=== PATIENT | female | born 1945 ===

== ENCOUNTER 2017-04-29 13:56 | Inpatient (IN) | payer OTHER ==
--- NOTE | 2017-04-29 15:11 | ED PDOC ---
HPI: General Adult Time Seen by Provider: 04/29/17 14:32 Chief Complaint (Nursing): Cough, Cold, Congestion History Per: Patient, Conversion Developer (German #[id number]) Additional Complaint(s): Pt. states since February she's had a persistent intermittently productive cough. Reports also developing worsening SOB. States initially she had back pain and chest pain present with coughing but now symptoms are present at rest. Further states she has been evaluated in [place] [facility] twice and had CXR, prescribed an antibiotic and a "strong" cough syrup (which caused her to have a pruritic rash). Also states that she had a CT of the chest in March in [place] [facility] which showed that she was "congested" and had no blood clots in the lung. Pt. states she was evaluated by Dr. Juarez today who instructed her to come to ED for further evaluation. Denies hemoptysis, fever, sick contacts, recent travel, leg pain/swelling, URIBE. Past Medical History Reviewed: Historical Data, Nursing Documentation, Vital Signs Vital Signs: Last Vital Signs Temp 98.1 F 04/29/17 14:07 Pulse 86 04/29/17 17:24 Resp 16 04/29/17 17:02 BP 130/60 04/29/17 17:02 Pulse Ox 98 04/29/17 17:24 - Medical History PMH: Depression, HTN - Family History Family History: States: No Known Family Hx - Home Medications Home Medications: Ambulatory Orders Medication Instructions Recorded Albuterol 0.083% [Albuterol 0.083% 3 ml IH Q8H PRN 04/29/17 Inhal Adelaide (2.5 mg/3 ml) UD] Albuterol/Ipratropium [Combivent 1 puff IH Q6H PRN 04/29/17 Respimat] Cholecalciferol [Vitamin D 1000 IU] 1,000 unit PO DAILY 04/29/17 Escitalopram [Lexapro] 20 mg PO DAILY 04/29/17 Loratadine [Claritin] 10 mg PO DAILY 04/29/17 Montelukast [Singulair] 10 mg PO HS 04/29/17 Marlin-3 Fatty Acids/Fish Oil 1,000 mg PO BID 04/29/17 [Marlin-3 1,000 mg Softgel] Omeprazole [Omeprazole] 20 mg PO DAILY 04/29/17 Rosuvastatin Calcium [Crestor] 10 mg PO QPM 04/29/17 Valsartan/Hydrochlorothiazide 1 tab PO DAILY 04/29/17 [Valsartan-Hctz 80-12.5 mg Tab] - Allergies Allergies/Adverse Reactions: Allergies Allergy/AdvReac Type Severity Reaction Status Date / Time No Known Allergies Allergy Verified 04/29/17 14:10 Review of Systems ROS Statement: Except As Marked, All Systems Reviewed And Found Negative Cardiovascular: Positive for: Chest Pain Respiratory: Positive for: Cough, Shortness of Breath Physical Exam - Reviewed Nursing Documentation Reviewed: Yes Vital Signs Reviewed: Yes - Physical Exam Appears: Positive for: Well, Non-toxic, No Acute Distress (actively coughing) Head Exam: Positive for: ATRAUMATIC, NORMAL INSPECTION, NORMOCEPHALIC Skin: Positive for: Normal Color, Warm. Negative for: Rash Eye Exam: Positive for: Normal appearance ENT: Positive for: Normal ENT Inspection Neck: Positive for: Normal, Painless ROM Cardiovascular/Chest: Positive for: Regular Rate, Rhythm Respiratory: Positive for: Normal Breath Sounds. Negative for: Decreased Breath Sounds, Accessory Muscle Use, Respiratory Distress Gastrointestinal/Abdominal: Positive for: Normal Exam, Bowel Sounds, Soft. Negative for: Tenderness Back: Positive for: Normal Inspection. Negative for: L CVA Tenderness, R CVA Tenderness Extremity: Positive for: Normal ROM Neurologic/Psych: Positive for: Alert, Oriented. Negative for: Aphasia, Facial Droop - Laboratory Results Result Diagrams: 04/29/17 15:26 04/29/17 15:26 - ECG ECG: Positive for: Interpreted By Me ECG Rhythm: Positive for: Sinus Rhythm. Negative for: ST/T Changes Rate: 86 O2 Sat by Pulse Oximetry: 98 - Radiology X-Ray: Interpreted by Me (CXR) X-Ray Interpretation: No Acute Disease - Progress ED Course And Treament: Labs ordered. CXR, EKG ordered. 1500 Case d/w Dr. Juarez who states pt. did get a CTA chest to R/O PE in March which was negative. Requests blood work and CXR to be done and for patient to be admitted under his service. ASA 324mg PO ordered. Disposition - Clinical Impression Clinical Impression: Dyspnea, Chest pain - Patient ED Disposition Is Patient to be Admitted: No - Disposition Disposition Time: 15:07 Condition: STABLE
[2017-04-29 15:33] LABS: BASO # 0.1 K/uL (0.0-0.2); BASO % 1.2 % (0.0-2.0); EOS # 0.9 K/uL (0.0-0.7); EOS % 11.1 % (0.0-4.0); HEMOGLOBIN 13.2 g/dL (12.0-16.0); LYMPH # 2.2 K/uL (1.0-4.3); LYMPH % 26.4 % (20.0-40.0); MEAN CELL VOLUME 87.9 fl (81.0-99.0); MEAN CORPUSCULAR HGB CONC 31.8 g/dL (33.0-37.0); MEAN PLATELET VOLUME 8.4 fl (7.2-11.7); MONO # 0.7 K/uL (0.0-0.8); MONO % 8.2 % (0.0-10.0); NEUT # 4.4 K/uL (1.8-7.0); NEUT % 53.1 % (50.0-75.0); NRBC % 0.1 % (0.0-0.0); RBC 4.72 Mil/uL (3.80-5.20); RED CELL DISTRIBUTION WIDTH 15.3 % (11.5-14.5); WHITE BLOOD COUNT 8.4 K/uL (4.8-10.8)
[2017-04-29 15:42] LABS: ALB/GLOB RATIO 1.1 (1.0-2.1); ALBUMIN 4.1 g/dL (3.5-5.0); ALT/SGPT 38 U/L (9-52); AST/SGOT 38 U/L (14-36); BLOOD UREA NITROGEN 12 mg/dl (7-17); CALCIUM 9.4 mg/dL (8.4-10.2); GFR AFRICAN-AMERICAN > 60; GFR NON-AFRICAN AMERICAN > 60
--- NOTE | 2017-04-29 15:50 | RAD ---
HISTORY: Shortness of breath COMPARISON: No prior. FINDINGS: LUNGS: The lungs are well inflated and clear. PLEURA: No significant pleural effusion identified, no pneumothorax apparent. CARDIOVASCULAR: Normal. OSSEOUS STRUCTURES: No significant abnormalities. VISUALIZED UPPER ABDOMEN: Normal. OTHER FINDINGS: None. IMPRESSION: No active pulmonary disease.
[2017-04-29 15:53] LABS: B-TYPE NATRIURETIC PEPTIDE 136 pg/ml (0-900)
[2017-04-29] MEDS ORDERED: Sodium Chloride 3% for Inhalation 4 ML VIAL.NEB IH PRN (18:19)
[2017-04-29] MEDS: Promethazine 12.5 mg/10 ml Syrup PO PRN (21:27)
[2017-04-29] MEDS ORDERED: Alum-Mag Hydrox-Simethicone Susp (30 mL) PO ONE (23:19)
[2017-04-29] MEDS: Pantoprazole 40 mg EC Tab PO SCH (23:29)
[2017-04-29] MEDS: Albuterol-Ipratrop 3 mg / 0.5 (3 ml) UD INH PRN (23:57)
[2017-04-30] MEDS: MethylPREDNISolone 40 mg Vial IVP SCH ×3 (00:39→16:18)
[2017-04-30 06:03] LABS: BASO % 0.5 % (0.0-2.0); EOS # 0.1 K/uL (0.0-0.7); EOS % 1.8 % (0.0-4.0); HEMOGLOBIN 13.7 g/dL (12.0-16.0); LYMPH # 0.8 K/uL (1.0-4.3); LYMPH % 10.2 % (20.0-40.0); MEAN CORPUSCULAR HEMOGLOBIN 28.2 pg (27.0-31.0); MEAN CORPUSCULAR HGB CONC 31.6 g/dL (33.0-37.0); MEAN PLATELET VOLUME 8.6 fl (7.2-11.7); MONO # 0.1 K/uL (0.0-0.8); MONO % 1.5 % (0.0-10.0); NEUT # 6.6 K/uL (1.8-7.0); NRBC % 0.1 % (0.0-0.0); RBC 4.88 Mil/uL (3.80-5.20); RED CELL DISTRIBUTION WIDTH 15.1 % (11.5-14.5); WHITE BLOOD COUNT 7.7 K/uL (4.8-10.8)
[2017-04-30 06:06] LABS: BLOOD UREA NITROGEN 14 mg/dl (7-17); CALCIUM 9.1 mg/dL (8.4-10.2); GFR AFRICAN-AMERICAN > 60; GFR NON-AFRICAN AMERICAN > 60; HDL CHOLESTEROL 79 MG/DL (30-70)
[2017-04-30 06:18] LABS: LDL CHOLESTEROL 145 mg/dL (0-129)
[2017-04-30] MEDS ORDERED: Patient's Own Med (Valsartan/Hydrochlorothiazide [Valsartan-Hctz 80-12.5 Mg Tab] 1 TAB) PO SCH (09:00)
[2017-04-30] MEDS: Promethazine 12.5 mg/10 ml Syrup PO PRN ×2 (09:01→16:18)
[2017-04-30] MEDS: Pantoprazole 40 mg EC Tab PO SCH (09:01)
[2017-04-30] MEDS: Omega-3-Acid Ethyl Esters 1 GM Cap PO SCH (09:02)
[2017-04-30] MEDS: levoFLOXacin 500 mg in D5W 500 MG/100 ML BAG IVPB SCH (09:10)
--- NOTE | 2017-04-30 10:09 | HP ---
HISTORY OF PRESENT ILLNESS: Ms. Ross is a 71-year-old female who was admitted because of persistent cough with shortness of breath and exercise intolerance for the past several months, worse on the day of admission. She indicates that she has been unable to go up flight of stairs and has had a cough with severe back pain. She had had a CT scan of the chest done at [facility], which was read as noncontributory. She also has had chest x-rays, which shows pulmonary congestion. PAST MEDICAL HISTORY: Depression, hypertension and what appears to be asthma and hyperlipidemia. MEDICATIONS: She has been on multiple medications to . FAMILY HISTORY: Unrevealing. SOCIAL HISTORY: She does not smoke or drink. Lives alone. REVIEW OF SYSTEMS: Essentially remarkable for exercise intolerance and shortness of breath with dry cough and back pain. OBJECTIVE: VITAL SIGNS: Blood pressure of 130/60, pulse of 86, respiratory rate of 16. She is febrile. O2 sat 98% on room air. SKIN: Shows fair turgor. HEENT: Pupils are equal and reactive to light and accommodation. Mouth shows fair hygiene. NECK: JVP flat. LUNGS: Fair aeration with audible rales and wheezing. HEART: Regular. ABDOMEN: Soft and nontender, no organomegaly. EXTREMITIES: Show no edema or cyanosis. CENTRAL NERVOUS SYSTEM: Exam grossly intact. LABORATORY DATA: Remarkable for WBC of 7.7, hemoglobin of 13.7, and platelet count of 257,000. Sodium of 144, potassium of 4.0, BUN of 14, creatinine of 0.3, and serum glucose of 110. Cholesterol of 289. ABG is pending. Chest x-ray is remarkable for no active pulmonary disease. IMPRESSION: Acute asthma, upper respiratory tract infection, back pain secondary to coughing, hypertension, hyperlipidemia, and anxiety disorder. PLAN: IV steroids as well as bronchodilators and antitussives and analgesics for back pain. We will obtain sputum for gram stain and cultures and blood cultures. Arterial blood gases to further evaluate for hypoxemia. Further therapy will depend on findings. William Juarez MD [facility] # [phone]
[2017-04-30 12:19] LABS: ABG ALLEN TEST YES; ARTERIAL BLOOD GAS HCO3 26.4 mmol/L (21-28); ARTERIAL BLOOD GAS HEMOGLOBIN 13.6 g/dL (11.7-17.4); ARTERIAL BLOOD GAS O2 CAPACITY 18.3 mL/dL (16-24); ARTERIAL BLOOD GAS O2 CONTENT 18.1 ML/dL (15-23); ARTERIAL BLOOD GAS O2 SAT 98.8 % (95-98); ARTERIAL BLOOD GAS PCO2 40 mm/Hg (35-45); ARTERIAL BLOOD GAS PH 7.43 (7.35-7.45); ARTERIAL BLOOD GAS PO2 80 mm/Hg (80-100); ARTERIAL BLOOD GAS TCO2 27.7 mmol/L (22-28)
[2017-04-30] MEDS: Albuterol-Ipratrop 3 mg / 0.5 (3 ml) UD INH PRN (15:28)
[2017-04-30] MEDS: Enoxaparin 40 mg Syringe SC SCH (16:17)
[2017-05-01] MEDS: MethylPREDNISolone 40 mg Vial IVP SCH ×3 (00:05→22:30)
[2017-05-01] MEDS: Albuterol-Ipratrop 3 mg / 0.5 (3 ml) UD INH PRN (01:10)
[2017-05-01] MEDS: Promethazine 12.5 mg/10 ml Syrup PO PRN ×3 (01:49→15:12)
--- NOTE | 2017-05-01 03:08 | CARD ---
APPROVED REPORT EKG Measurement Heart [id number] <Conclusion> Normal sinus rhythm Possible Inferior infarct, age undetermined Abnormal ECG
[2017-05-01] MEDS: Omega-3-Acid Ethyl Esters 1 GM Cap PO SCH ×2 (08:41→16:38)
[2017-05-01] MEDS: Enoxaparin 40 mg Syringe SC SCH (08:42)
[2017-05-01] MEDS: Pantoprazole 40 mg EC Tab PO SCH (08:42)
[2017-05-01] MEDS: levoFLOXacin 500 mg in D5W 500 MG/100 ML BAG IVPB SCH (08:43)
--- NOTE | 2017-05-01 09:37 | CP.PCM.PN ---
Subjective - Date & Time of Evaluation Date of Evaluation: 05/01/17 Time of Evaluation: 09:37 - Subjective Subjective: CLINICALLY IMPROVING LESS COUGH/SOB Objective - Vital Signs/Intake and Output Vital Signs (last 24 hours): Temp Pulse Resp BP Pulse Ox 98.4 F 84 18 106/69 98 05/01/17 07:56 05/01/17 07:56 05/01/17 07:56 05/01/17 07:56 05/01/17 07:56 - Medications Medications: Current Medications Acetaminophen (Tylenol 325mg Tab) 650 mg PO Q4 PRN PRN Reason: Pain, Mild (1-3) Last Admin: 05/01/17 08:47 Dose: 650 mg Albuterol/Ipratropium (Duoneb 3 Mg/0.5 Mg (3 Ml) Ud) 3 ml INH RQ6 PRN PRN Reason: Shortness of Breath Last Admin: 05/01/17 01:10 Dose: 3 ml Atorvastatin Calcium (Lipitor) 10 mg PO DAILY [facility] Last Admin: 05/01/17 08:42 Dose: 10 mg Enoxaparin Sodium (Lovenox) 40 mg SC DAILY [facility] PRN Reason: Protocol Last Admin: 05/01/17 08:42 Dose: 40 mg Escitalopram Oxalate (Lexapro) 20 mg PO DAILY [facility] Last Admin: 05/01/17 08:42 Dose: 20 mg Hydrochlorothiazide (Microzide) 12.5 mg PO DAILY [facility] Last Admin: 05/01/17 08:40 Dose: 12.5 mg Levofloxacin/Dextrose (Levaquin 500mg) 500 mg in 100 mls @ 100 mls/hr IVPB DAILY [facility] PRN Reason: Protocol Last Admin: 05/01/17 08:43 Dose: 100 mls/hr Ceftriaxone Sodium 1 gm/ (Sodium Chloride) 100 mls @ 100 mls/hr IVPB DAILY [facility] PRN Reason: Protocol Last Admin: 05/01/17 08:44 Dose: 100 mls/hr Methylprednisolone (Solu-Medrol) 40 mg IVP Q8 [facility] Last Admin: 05/01/17 08:40 Dose: 40 mg Montelukast Sodium (Singulair) 10 mg PO HS [facility] Last Admin: 04/30/17 21:44 Dose: 10 mg [id number] Ethyl Esters (Lovaza) 1 gm PO BID [facility] Last Admin: 05/01/17 08:41 Dose: 1 gm Pantoprazole Sodium (Protonix Ec Tab) 40 mg PO DAILY [facility] Last Admin: 05/01/17 08:42 Dose: 40 mg Promethazine HCl (Phenergan Syrup) 12.5 mg PO Q6 PRN PRN Reason: Cough Last Admin: 05/01/17 08:43 Dose: 12.5 mg Valsartan (Diovan) 80 mg PO DAILY [facility] Last Admin: 05/01/17 08:42 Dose: 80 mg - Labs Labs: 04/30/17 04:30 04/30/17 04:30 - Constitutional Appears: No Acute Distress - Head Exam Head Exam: ATRAUMATIC, NORMAL INSPECTION, NORMOCEPHALIC - Eye Exam Eye Exam: EOMI, Normal appearance, PERRL Pupil Exam: NORMAL ACCOMODATION, PERRL - ENT Exam ENT Exam: Mucous Membranes Moist, Normal Exam - Neck Exam Neck Exam: Full ROM, Normal Inspection. absent: Lymphadenopathy - Respiratory Exam Respiratory Exam: Prolonged Expiratory Phase, Wheezes, NORMAL BREATHING PATTERN - Cardiovascular Exam Cardiovascular Exam: REGULAR RHYTHM, +S1, +S2. absent: Murmur - GI/Abdominal Exam GI & Abdominal Exam: Soft, Normal Bowel Sounds. absent: Tenderness - Rectal Exam Rectal Exam: NORMAL INSPECTION - Extremities Exam Extremities Exam: Full ROM, Normal Capillary Refill, Normal Inspection. absent : Joint Swelling, Pedal Edema - Back Exam Back Exam: NORMAL INSPECTION - Neurological Exam Neurological Exam: Alert, Awake, CN II-XII Intact, Normal Gait, Oriented x3 - Psychiatric Exam Psychiatric exam: Normal Affect, Normal Mood - Skin Skin Exam: Dry, Intact, Normal Color, Warm Assessment and Plan - Assessment and Plan (Free Text) Assessment: ACUTE EXAC OF ASTHMA URI Plan: TAPER STEROIDS D/C IN AM IF STABLE
[2017-05-02 00:28] VITALS: RESP 18
[2017-05-02 07:59] VITALS: BP 105/67; PULSE 63; TEMP 97.2; O2SAT 96
--- NOTE | 2017-05-02 08:08 | CP.PCM.DIS ---
Provider - Provider Date of Admission: 04/30/17 15:05 Attending physician: William Juarez MD Time Spent in preparation of Discharge (in minutes): 30 Diagnosis - Discharge Diagnosis (1) Asthma Status: Acute (2) Upper respiratory infection Status: Acute (3) Hypertension Status: Acute Hospital Course - Lab Results Lab Results: Micro Results 04/30/17 04:30 Blood-Venous Blood Culture - Preliminary NO GROWTH AFTER 48 HOURS 04/30/17 21:50 Sputum Gram Stain - Final Most Recent Lab Values WBC 7.7 K/uL (4.8-10.8) 04/30/17 04:30 RBC 4.88 Mil/uL (3.80-5.20) 04/30/17 04:30 Hgb 13.7 g/dL (12.0-16.0) 04/30/17 04:30 Hct 43.4 % (34.0-47.0) 04/30/17 04:30 MCV 89.0 fl (81.0-99.0) 04/30/17 04:30 MCH 28.2 pg (27.0-31.0) 04/30/17 04:30 MCHC 31.6 g/dL (33.0-37.0) L 04/30/17 04:30 RDW 15.1 % (11.5-14.5) H 04/30/17 04:30 Plt Count 257 K/uL (130-400) 04/30/17 04:30 MPV 8.6 fl (7.2-11.7) 04/30/17 04:30 Neut % (Auto) 86.0 % (50.0-75.0) H 04/30/17 04:30 Lymph % (Auto) 10.2 % (20.0-40.0) L 04/30/17 04:30 Baxter % (Auto) 1.5 % (0.0-10.0) 04/30/17 04:30 Eos % (Auto) 1.8 % (0.0-4.0) 04/30/17 04:30 Baso % (Auto) 0.5 % (0.0-2.0) 04/30/17 04:30 Neut # (Auto) 6.6 K/uL (1.8-7.0) 04/30/17 04:30 Lymph # (Auto) 0.8 K/uL (1.0-4.3) L 04/30/17 04:30 Baxter # (Auto) 0.1 K/uL (0.0-0.8) 04/30/17 04:30 Eos # (Auto) 0.1 K/uL (0.0-0.7) 04/30/17 04:30 Baso # (Auto) 0.0 K/uL (0.0-0.2) 04/30/17 04:30 pCO2 40 mm/Hg (35-45) 04/30/17 12:05 pO2 80 mm/Hg (80-100) 04/30/17 12:05 HCO3 26.4 mmol/L (21-28) 04/30/17 12:05 ABG pH 7.43 (7.35-7.45) 04/30/17 12:05 ABG Total CO2 27.7 mmol/L (22-28) 04/30/17 12:05 ABG O2 Saturation 98.8 % (95-98) H 04/30/17 12:05 ABG O2 Content 18.1 ML/dL (15-23) 04/30/17 12:05 ABG Base Excess 2.0 mmol/L (-2.0-3.0) 04/30/17 12:05 ABG Hemoglobin 13.6 g/dL (11.7-17.4) 04/30/17 12:05 ABG Carboxyhemoglobin 2.1 % (0.5-1.5) H 04/30/17 12:05 POC ABG HHb (Measured) 1.1 % (0.0-5.0) 04/30/17 12:05 ABG Methemoglobin 2.4 % (0.0-3.0) 04/30/17 12:05 ABG O2 Capacity 18.3 mL/dL (16-24) 04/30/17 12:05 Cameron Test Yes 04/30/17 12:05 A-a O2 Difference 70.0 mm/Hg 04/30/17 12:05 Hgb O2 Saturation 94.5 % (95.0-98.0) L 04/30/17 12:05 FiO2 28.0 % 04/30/17 12:05 Sodium 144 mmol/l (132-148) 04/30/17 04:30 Potassium 4.0 MMOL/L (3.6-5.0) 04/30/17 04:30 Chloride 102 mmol/L (98-107) 04/30/17 04:30 Carbon Dioxide 28 mmol/L (22-30) 04/30/17 04:30 Anion Gap 18 (10-20) 04/30/17 04:30 BUN 14 mg/dl (7-17) 04/30/17 04:30 Creatinine 0.8 mg/dl (0.7-1.2) 04/30/17 04:30 Est GFR ( Amer) > 60 04/30/17 04:30 Est GFR (Non-Af Amer) > 60 04/30/17 04:30 Random Glucose 110 mg/dL (65-105) H 04/30/17 04:30 Calcium 9.1 mg/dL (8.4-10.2) 04/30/17 04:30 Total Bilirubin 0.4 mg/dl (0.2-1.3) 04/29/17 15:26 AST 38 U/L (14-36) H 04/29/17 15:26 ALT 38 U/L (9-52) 04/29/17 15:26 Alkaline Phosphatase 65 U/L (38-126) 04/29/17 15:26 Troponin I < 0.0120 ng/mL (0.00-0.120) 04/29/17 15:26 NT-Pro-B Natriuret Pep 136 pg/ml (0-900) 04/29/17 15:26 Total Protein 7.7 G/DL (6.3-8.2) 04/29/17 15:26 Albumin 4.1 g/dL (3.5-5.0) 04/29/17 15:26 Globulin 3.6 gm/dL (2.2-3.9) 04/29/17 15:26 Albumin/Globulin Ratio 1.1 (1.0-2.1) 04/29/17 15:26 Triglycerides 148 mg/DL (0-149) 04/30/17 04:30 Cholesterol 289 mg/dL (0-199) H 04/30/17 04:30 LDL Cholesterol Direct 145 mg/dL (0-129) H 04/30/17 04:30 HDL Cholesterol 79 MG/DL (30-70) H 04/30/17 04:30 - Hospital Course Hospital Course: sob and cough less Discharge Exam - Head Exam Head Exam: ATRAUMATIC, NORMAL INSPECTION, NORMOCEPHALIC - Eye Exam Eye Exam: EOMI, Normal appearance, PERRL Pupil Exam: NORMAL ACCOMODATION, PERRL - Respiratory Exam Respiratory Exam: NORMAL BREATHING PATTERN - GI/Abdominal Exam GI & Abdominal Exam: Normal Bowel Sounds - Rectal Exam Rectal Exam: NORMAL INSPECTION - Neurological Exam Neurological exam: Alert, CN II-XII Intact, Normal Gait, Oriented x3, Reflexes Normal - Psychiatric Exam Psychiatric exam: Normal Affect, Normal Mood - Skin Skin Exam: Dry, Intact, Normal Color, Warm Discharge Plan - Follow Up Plan Condition: STABLE Disposition: HOME/ ROUTINE Patient education suggested?: Yes Instructions: Asthma, Adult (DC), Chest Pain (DC) Referrals: Crista Ruiz MD [Family Provider] -
[2017-05-02] MEDS: MethylPREDNISolone 40 mg Vial IVP SCH (09:11)
[2017-05-02] MEDS: Enoxaparin 40 mg Syringe SC SCH (09:12)
[2017-05-02] MEDS: Omega-3-Acid Ethyl Esters 1 GM Cap PO SCH (09:12)
[2017-05-02] MEDS: Pantoprazole 40 mg EC Tab PO SCH (09:13)
[2017-05-02] MEDS: levoFLOXacin 500 mg in D5W 500 MG/100 ML BAG IVPB SCH (10:10)
== END 2017-05-02 11:35 | disposition home or self-care (01) | DRG 203 ==
LOC: H.ER 13:56 → INTOOBSV 15:27 → H.ERHOLD 15:27 → H.TEL 17:15 → OBSVTOIN 04-30 15:05
PROVIDERS: ADMIT Internal Medicine Pulmonary Disease; ATTEND Internal Medicine Pulmonary Disease
DX: J45.901 Unspecified asthma with (acute) exacerbation (principal); E78.5 Hyperlipidemia, unspecified; J06.9 Acute upper respiratory infection, unspecified; F41.9 Anxiety disorder, unspecified; F32.9 Major depressive disorder, single episode, unspecified; I10 Essential (primary) hypertension

== ENCOUNTER 2017-06-04 00:55 | Emergency (ER) | payer OTHER ==
[2017-06-04 01:47] VITALS: BP 141/88; PULSE 81; RESP 16; TEMP 97.6; O2SAT 99
[2017-06-04 03:00] LABS: BASO # 0.1 K/uL (0.0-0.2); BASO % 0.8 % (0.0-2.0); EOS # 0.6 K/uL (0.0-0.7); EOS % 7.3 % (0.0-4.0); LYMPH # 2.6 K/uL (1.0-4.3); LYMPH % 31.2 % (20.0-40.0); MEAN CELL VOLUME 88.3 fl (81.0-99.0); MEAN CORPUSCULAR HEMOGLOBIN 28.9 pg (27.0-31.0); MEAN CORPUSCULAR HGB CONC 32.7 g/dL (33.0-37.0); MEAN PLATELET VOLUME 8.3 fl (7.2-11.7); MONO # 0.8 K/uL (0.0-0.8); MONO % 9.6 % (0.0-10.0); NEUT # 4.3 K/uL (1.8-7.0); NEUT % 51.1 % (50.0-75.0); NRBC % 0.1 % (0.0-0.0); RBC 4.49 Mil/uL (3.80-5.20); RED CELL DISTRIBUTION WIDTH 14.8 % (11.5-14.5); WHITE BLOOD COUNT 8.3 K/uL (4.8-10.8)
--- NOTE | 2017-06-04 03:05 | ED PDOC ---
HPI: CCC, URI, Sore Throat Time Seen by Provider: 06/04/17 01:45 Chief Complaint (Nursing): Dizziness/Lightheaded Chief Complaint (Provider): cough and Shortness of breath History Per: Patient History/Exam Limitations: no limitations Onset/Duration Of Symptoms: Worse Since (1 month ago) Current Symptoms Are (Timing): Still Present Additional Complaint(s): 71 yo female with a history of hypertension and hypercholesterolemia presents to the ED complaining of shortness of breath, cough, and facial swelling, onset of 1 month ago. Patient was recently diagnosed with sinusitis and bronchitis a month and a half ago and admitted to this hospital. She was then discharge after 4 days and was told that she had asthma. Patient reports finishing a course of out of patient antibiotics, but symptoms persisted, prompting a follow-up visit with Dr. Ruiz. She currently reports of white phlegm , shortness of breath, and facial swelling. Of note, the patient is currently on a course of avelox, as per Dr. Ruiz, Promethazine PM with no relief, and Alavert for an unspecified allergy. Past Medical History Reviewed: Historical Data, Nursing Documentation, Vital Signs Vital Signs: Last Vital Signs Temp 97.6 F 06/04/17 01:45 Pulse 81 06/04/17 01:45 Resp 16 06/04/17 01:45 BP 141/88 06/04/17 01:45 Pulse Ox 99 06/04/17 03:23 - Medical History PMH: Anxiety, Depression, HTN, Hypercholesterolemia Denies: HIV, Chronic Kidney Disease - Surgical History Surgical History: No Surg Hx - Family History Family History: States: Unknown Family Hx - Social History Current smoker - smoking cessation education provided: No Ex-Smoker (has not smoked in the last 12 months): No Alcohol: None Drugs: Denies - Home Medications Home Medications: Ambulatory Orders Medication Instructions Recorded Albuterol 0.083% [Albuterol 0.083% 3 ml IH Q8H PRN 04/29/17 Inhal Adelaide (2.5 mg/3 ml) UD] Albuterol/Ipratropium [Combivent 1 puff IH Q6H PRN 04/29/17 Respimat] Cholecalciferol [Vitamin D 1000 IU] 1,000 unit PO DAILY 04/29/17 Escitalopram [Lexapro] 20 mg PO DAILY 04/29/17 Loratadine [Claritin] 10 mg PO DAILY 04/29/17 Montelukast [Singulair] 10 mg PO HS 04/29/17 Douglas-3 Fatty Acids/Fish Oil 1,000 mg PO BID 04/29/17 [Douglas-3 1,000 mg Softgel] Omeprazole 20 mg PO DAILY 04/29/17 Rosuvastatin Calcium [Crestor] 10 mg PO QPM 04/29/17 Valsartan/Hydrochlorothiazide 1 tab PO DAILY 04/29/17 [Valsartan-Hctz 80-12.5 mg Tab] Azithromycin [Zithromax] 250 mg PO DAILY #6 tab 05/02/17 Promethazine [Phenergan Syrup] 12.5 mg PO Q6 #1 cup 05/02/17 predniSONE [predniSONE Tab] 10 mg PO DAILY #7 tab 05/02/17 predniSONE [predniSONE Tab] 60 mg PO QAM #12 tab 06/04/17 - Allergies Allergies/Adverse Reactions: Allergies Allergy/AdvReac Type Severity Reaction Status Date / Time No Known Allergies Allergy Verified 04/29/17 14:10 Review of Systems ROS Statement: Except As Marked, All Systems Reviewed And Found Negative Constitutional: Positive for: Other (facial swelling). Negative for: Fever Respiratory: Positive for: Cough, Shortness of Breath, Sputum (white phlegm) Physical Exam - Reviewed Nursing Documentation Reviewed: Yes Vital Signs Reviewed: Yes - Physical Exam Appears: Positive for: Uncomfortable Head Exam: Positive for: ATRAUMATIC, NORMAL INSPECTION, NORMOCEPHALIC Skin: Positive for: Normal Color, Warm, DRY Eye Exam: Positive for: EOMI, Normal appearance, PERRL ENT: Positive for: Normal ENT Inspection Neck: Positive for: Normal, Painless ROM Cardiovascular/Chest: Positive for: Regular Rate, Rhythm. Negative for: Murmur Respiratory: Positive for: Normal Breath Sounds, Rhonchi (mild at the bases) Gastrointestinal/Abdominal: Positive for: Normal Exam, Soft. Negative for: Tenderness Back: Positive for: Normal Inspection Extremity: Positive for: Normal ROM, Other (no facial swelling). Negative for: Pedal Edema, Deformity Neurologic/Psych: Positive for: Alert, Oriented. Negative for: Motor/Sensory Deficits - Laboratory Results Result Diagrams: 06/04/17 02:50 06/04/17 02:50 - ECG O2 Sat by Pulse Oximetry: 99 (RA) Pulse Ox Interpretation: Normal Medical Decision Making Medical Decision Making: Time: --01:55 Impression: --71 yo female with a non-persistent cough in setting of recent hospitalization Plan: --CT Angio Chest --ECG --BNP --Labs --Troponin --Heplock Insertion --Accucheck Reassess --04:45 EXAM: CT Angiography Chest With Intravenous Contrast CLINICAL HISTORY: 71 years old, female; Signs and symptoms; Other: Facial/feet numbness; Additional info: Chest pain R/O pe TECHNIQUE: Axial computed tomographic angiography images of the chest with intravenous contrast using pulmonary embolism protocol. All CT scans at this facility use one or more dose reduction techniques, viz.: automated exposure control; ma/kV adjustment per patient size (including targeted exams where dose is matched to indication; i.e. head); or iterative reconstruction technique. 1595 images are submitted. MIP reconstructed images were created and reviewed. Coronal and sagittal reformatted images were created and reviewed. CONTRAST: 95 mL of visipaque 325 administered intravenously. COMPARISON: No relevant prior studies available. FINDINGS: Pulmonary arteries: No CT evidence for pulmonary embolus. Aorta: No acute findings. No thoracic aortic aneurysm. Lungs: Minimal nonspecific hazy infiltration in the medial right lower lobe seen on image 77 series 4 may represent atelectasis versus early pneumonia. No mass.The visualized portions of major airways are patent. Pleural space: Unremarkable. No significant effusion. No pneumothorax. Heart: There is fluid in the superior pericardial recess. Cardiomegaly. Mediastinum: Small hiatal hernia. Bones/joints: No acute fracture. No dislocation. Soft tissues: Unremarkable. Lymph nodes: Small bilateral hilar lymph nodes. Stomach and bowel: Large amount of stool in the colon. Correlation with patient' s clinical history of constipation is recommended.Nonspecific gastric thickening likely due to under distention. Correlation with clinical data is recommended if gastritis is suspected. Adrenal glands: Normal. 1. Minimal nonspecific hazy infiltration in the medial right lower lobe seen on image 77 series 4 may represent atelectasis versus reactive airway disease versus early pneumonia. 2. No CT evidence for pulmonary embolus. --05:22 labs reviewed and reveal no clinically significant abnormalities. Patient has been instructed to follow up with Dr. Ruiz, Dr. Juarez, and hvac r instructor Dr. Arguello. In the provider's opinion, he believes that this may possibly be another form of bronchitis, possibly allergic. Patient is stable for discharged home. Scribe Attestation: Documented by Alec Hdez acting as a scribe for Андрей Broussard MD. Provider Attestation: All medical record entries made by the Scribe were at my direction and personally dictated by me. I have reviewed the chart and agree that the record accurately reflects my personal performance of the history, physical exam, medical decision making, and the department course for this patient. I have also personally directed, reviewed, and agree with the discharge instructions and disposition. Transfers Disposition - Clinical Impression Clinical Impression: Bronchitis, Allergic reaction - Disposition Referrals: Freedom Ruiz MD [Primary Care Provider] - Lester Arguello MD [Staff Provider] - William Juarez MD [Staff Provider] - Disposition: Routine/Home Disposition Time: 05:22 Condition: STABLE Prescriptions: predniSONE [predniSONE Tab] 60 mg PO QAM #12 tab Instructions: Acute Bronchitis, Allergy Skin Testing Forms: [facility] (Martiniquais)
[2017-06-04 03:13] LABS: ALB/GLOB RATIO 1.1 (1.0-2.1); ALT/SGPT 29 U/L (9-52); AST/SGOT 28 U/L (14-36); BLOOD UREA NITROGEN 13 mg/dl (7-17); CALCIUM 8.8 mg/dL (8.4-10.2); GFR AFRICAN-AMERICAN > 60; GFR NON-AFRICAN AMERICAN > 60
[2017-06-04] MEDS ORDERED: Iodixanol 320 MG/ML 100 ML BOTTLE IV ONE (03:42)
[2017-06-04 03:43] LABS: B-TYPE NATRIURETIC PEPTIDE 61.3 pg/ml (0-900)
[2017-06-04] MEDS ORDERED: Sodium Chloride 0.9% 100 ML ONE (03:43)
--- NOTE | 2017-06-04 04:45 | CT ---
EXAM: CT Angiography Chest With Intravenous Contrast CLINICAL HISTORY: 71 years old, female; Signs and symptoms; Other: Facial/feet numbness; Additional info: Chest pain R/O pe TECHNIQUE: Axial computed tomographic angiography images of the chest with intravenous contrast using pulmonary embolism protocol. All CT scans at this facility use one or more dose reduction techniques, viz.: automated exposure control; ma/kV adjustment per patient size (including targeted exams where dose is matched to indication; i.e. head); or iterative reconstruction technique. 1595 images are submitted. MIP reconstructed images were created and reviewed. Coronal and sagittal reformatted images were created and reviewed. CONTRAST: 95 mL of visipaque 325 administered intravenously. COMPARISON: No relevant prior studies available. FINDINGS: Pulmonary arteries: No CT evidence for pulmonary embolus. Aorta: No acute findings. No thoracic aortic aneurysm. Lungs: Minimal nonspecific hazy infiltration in the medial right lower lobe seen on image 77 series 4 may represent atelectasis versus early pneumonia. No mass.The visualized portions of major airways are patent. Pleural space: Unremarkable. No significant effusion. No pneumothorax. Heart: There is fluid in the superior pericardial recess. Cardiomegaly. Mediastinum: Small hiatal hernia. Bones/joints: No acute fracture. No dislocation. Soft tissues: Unremarkable. Lymph nodes: Small bilateral hilar lymph nodes. Stomach and bowel: Large amount of stool in the colon. Correlation with patient's clinical history of constipation is recommended.Nonspecific gastric thickening likely due to under distention. Correlation with clinical data is recommended if gastritis is suspected. Adrenal glands: Normal. IMPRESSION: 1. Minimal nonspecific hazy infiltration in the medial right lower lobe seen on image 77 series 4 may represent atelectasis versus reactive airway disease versus early pneumonia. 2. No CT evidence for pulmonary embolus.
--- NOTE | 2017-06-04 21:15 | CARD ---
APPROVED REPORT EKG Measurement Heart [id number] QNa114 <Conclusion> Normal sinus rhythm Normal ECG
== END 2017-06-04 05:31 | disposition home or self-care (01) ==
LOC: H.ER 00:55
DX: J40 Bronchitis, not specified as acute or chronic (principal); T78.40XA Allergy, unspecified, initial encounter; E78.00 Pure hypercholesterolemia, unspecified; I10 Essential (primary) hypertension; F41.9 Anxiety disorder, unspecified; F32.9 Major depressive disorder, single episode, unspecified
CPT/HCPCS: 71275; 80053; 83880; 84484; 85025; 93005; 96374; 99284; J2930; Q9967